=== PATIENT | female | born 1985 | race Caucasian/White ===

== ENCOUNTER 2016-04-13 13:35 | Emergency (ER) | payer MEDICAID ==
--- NOTE | 2016-04-13 14:11 | ERNOTE ---
Abdominal HPI - Narrative Date of Service: 04/13/16 - General Chief Complaint: Abdominal Pain Time Seen by Provider: 04/13/16 14:00 Source: patient Exam Limitations: no limitations - Immun/Allergies/Home Medications Immunizatons: IMMUNIZATION HX Immunizations Up to Date Yes Allergies/Adverse Reactions: Allergies No Known Allergies Allergy (Unverified 04/13/16 13:54) Home Medications: HOME MEDICATIONS L.acidoph & Paracasei,B.lactis [Probiotic] 1 each PO 04/13/16 [Last Taken Unknown] Omeprazole [Prilosec] 20 mg PO DAILY #14 cap 04/13/16 [Last Taken Unknown] - History of Present Illness Narrative: Patient presents with left upper abdominal pain. She relates she has been having this for years. She relates that she had upper endoscopy 2009 and was diagnosed with gastritis. She has been having pain since then. No fever, no vomiting, no diarrhea. She relates that she was getting tired of this and wanted to get checked. SHe states the pain is exactly what she has been having , nothing different about it - chronic in nature. Timing: constant Quality: burning Activities at Onset: none Modifying Factors - (Improves): Present: other - none Modifying Factors - (Worsens): Present: other - none Associated Symptoms: Absent: back pain, diarrhea-gross blood, diarrhea-mucous, fever/chills, vomiting, shortness of breath, swelling/mass in abdomen Prior Abdominal Problems: Absent: recent trauma Prior Treatment: Absent: recently seen Review of Systems - Review of Systems Constitutional: Absent: chills Respiratory: Present: no symptoms reported Cardiology: Present: no symptoms reported Gastrointestinal/Abdominal: Present: See HPI Genitourinary: Absent: dysuria Skin: Absent: rash - Patient's Past Medical History Patient History - Surgical Procedures: T & A - Social History Living Situations: home Smoking Status: Never smoker - Immunizations Immunizations Up to Date: Yes Physical Exam - Physical Exam General Appearance: Present: alert, no apparent distress Eye Exam: Normal inspection: bilateral, PERRL: bilateral Ears, Nose, Throat: Present: normal ENT inspection Neck: Present: normal inspection Respiratory: Present: no respiratory distress, normal breath sounds, no accessory muscle use, lungs clear Cardiovascular/Chest: Present: regular rate, rhythm Gastrointestinal/Abdominal: Present: normal bowel sounds, nondistended, soft, other - Mild left upper abdominal tenderness. No guarding or rebound. no peritoneal signs. No mass. No suprapubic or pelvic tenderness. Non-surgical exam.. Absent: guarding, rebound Back Exam: Absent: CVA tenderness (R), CVA tenderness (L) Extremity Exam: Present: normal inspection Neurological Exam: Present: alert, no motor/sensory deficits Skin Exam: Absent: skin rash ED Progress - Results and Orders Patient's Lab Results:: I have reviewed the patient's lab results. - Vital Signs Patient's Vital Signs:: I have reviewed the patient's vital signs. Vital Signs: Vital Signs 04/13/16 13:45 Temperature 36.1 C L Pulse Rate 89 Respiratory 14 Rate Blood Pressure 139/73 O2 Sat by Pulse 98 Oximetry - Progress/Reassessment Chief Complaint: Abdominal Pain Progress Note-Subjective: 04/13/16 15:01 I offered the patient blood testing but she did not want to undergo this, she declines this. Understands risks and benefits. She wishes to go home. Stable , on-toxic,m no distress, chronic pain, non-surgical exam. Departure - Departure Clinical Impression: Abdominal pain Disposition: Home self-care Condition: Stable Instructions: Abdominal Pain, Adult, [id number] Additional Instructions: Rest. Fluids. Follow-up with your doctor within 3 days for a re-check. Return here if you change your mind about having any of the testing offered, develop fever, vomiting, or if your condition worsens or changes in any way. Prescriptions: Omeprazole [Prilosec] 20 mg PO DAILY #14 cap
[2016-04-13 14:18] LABS: Urine Bilirubin Negative (NEGATIVE); Urine Blood Negative /ul (NEGATIVE); Urine Ketone Negative (NEGATIVE); Urine Nitrite Negative (NEGATIVE); Urine Protein Negative (NEGATIVE); Urine Specific Gravity 1.015 SP.GR. (1.005-1.010); Urine Urobilinogen Normal (NORMAL)
[2016-04-13 14:29] LABS: Urine Appearance Clear; Urine Bacteria None Seen; Urine Color Yellow; Urine RBC None Seen /hpf (0-5); Urine WBC None Seen /hpf (0-5)
[2016-04-13 14:50] VITALS: BP 133/58
== END 2016-04-13 15:14 | disposition home or self-care (01) ==
LOC: ER 13:35
DX: R10.9 Unspecified abdominal pain (principal)